=== PATIENT | female | born 1950 | race Caucasian/White ===

== ENCOUNTER 2021-03-20 15:20 | Inpatient (IN) ==
[2021-03-20] MEDS ORDERED: IOPAMIDOL 100 ML BOTTLE IV ONE (15:21)
[2021-03-20] MEDS ORDERED: 0.9 % SODIUM CHLORIDE 1,000 ML IV ONE (15:51)
--- NOTE | 2021-03-20 16:01 | Emergency Department Note ---
Chest Pain HPI General Chief Complaint: Abdominal Pain Stated Complaint: RUQ pain Time Seen by Provider: 03/20/21 15:25 Source: patient Mode of arrival: ambulatory Limitations: no limitations History of Present Illness HPI Narrative: 70-year-old female presents with chief complaint of right sided chest pain behind her right breast. Patient denies any trauma or injury or any straining. The pain is sharp in nature it is worse with a deep breathing movement and coughing. Patient denies any nausea vomiting. Patient does have a history of tongue cancer and she had surgery and radiation and does have some dysphagia and has aspirated in the past. Patient denies any fevers chills shortness of breath or cough. No vomiting no diarrhea. Patient denies history of heart or lung disease. Denies any history of thromboembolism. Patient does have chronic pain and takes hydrocodone for pain. Related Data Home Medications Medication Instructions Recorded Confirmed gabapentin 600 mg PO QAM 10/05/20 02/13/21 Previous Rx's Medication Instructions Recorded magic mouth rinse 1 tsp .ROUTE TID #240 06/21/18 lansoprazole 30 mg capsule,delayed 30 mg PO DAILY #90 cap 06/05/20 release hydrocodone 7.5 mg-acetaminophen 1 tab PO Q6H PRN #30 tab 12/02/20 325 mg tablet zaleplon 10 mg capsule 20 mg PO QHS #240 cap 12/02/20 gabapentin 300 mg capsule 600 mg PO BID 30 Days #120 cap 03/18/21 Allergies Allergy/AdvReac Type Severity Reaction Status Date / Time No Known Drug Allergies Allergy Verified 03/20/21 15:24 Review of Systems ROS ROS Narrative: Narrative: All systems ED: reviewed and negative except as stated. Constitutional: Denies fever, chills and sweats Eyes: Denies vision change Cardiovascular: Reports chest pain (Right-sided, pleuritic) Respiratory: Denies shortness of breath and cough Gastrointestinal: Denies abdominal pain, vomiting and diarrhea Musculoskeletal: Denies back pain and joint pain Integumentary: Denies rash Neurological: Denies headache and dizziness Psychiatric: Denies anxiety, suicidal thoughts and homicidal thoughts Endocrine: Denies polydipsia and polyuria Hematological/Lymphatic: Denies easy bleeding and easy bruising [facility] Narrative Patient History Narrative: Narrative: Medical/Surgical/Family History All Active Problems (Updated 03/20/21 @ 17:14 by Davon Pino MD) Chest pain (Acute) Medicare annual wellness visit, initial (Acute) Nasal polyps (Acute) Paronychia of finger of left hand (Acute) Insomnia (Chronic) Paroxysmal atrial fibrillation (Chronic) TMJ (dislocation of temporomandibular joint) (Chronic) Mouth pain (Chronic) Small bowel obstruction (Chronic) Wellness examination (Chronic) Liver mass (Chronic) Lung nodules (Chronic) Unintentional weight loss (Acute) Difficulty swallowing (Chronic) Stomach cramps (Chronic) Mouth pain (Chronic) Oral candidiasis (Chronic) Osteoporosis (Chronic) Joint pain (Chronic) Hyperlipidemia (Chronic) Tongue cancer (Chronic ~1996) Arthritis (Chronic) Acid reflux (Chronic) Medical History Acid reflux Arthritis Difficulty swallowing History of tobacco use Hyperlipidemia Insomnia Joint pain Medicare annual wellness visit, initial Mouth pain Nasal polyps Osteoporosis Paronychia of finger of left hand Paroxysmal atrial fibrillation Small bowel obstruction Hospitalized [facility] 05/22/18 -she had small bowel resection, adhesion lysis, and rt ovary removed -she had 1 episode of A-fib which resolved before discharge TMJ (dislocation of temporomandibular joint) 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, 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 [place] Unintentional weight loss Wellness examination 04/29/18 Surgical History H/O colonoscopy (01/19/12) Dr Parent H/O oral surgery (~1996) Tongue cancer History of bowel resection (05/12/18) History of exploratory laparotomy (05/12/18) History of right oophorectomy (05/12/18) Family History Mother Dementia Father Hypertension, essential Stroke Social History Smoking Status: Former smoker Alcohol Intake Frequency: a few times a month Substance Use: does not use Exam Narrative Narrative: Constitutional: Awake alert no acute distress thin, elderly HEENT: Normocephalic, atraumatic PERRLA, EOMI, oral mucosa moist, pharynx clear, Neck: Supple, no lymphadenopathy, no JVD Lungs: Breathing unlabored, lungs clear Cardiac: Regular rate and rhythm, normal distal pulses, GI: Soft nontender nondistended no guarding no rebound Musculoskeletal: No tenderness, no deformities, no edema, full range of motion Neuro: Awake alert, cranial nerves II through XII grossly intact, no focal motor or sensory deficits Psychiatric: Normal mood and affect Skin: Warm dry no rash, cap refill less than 2 seconds; no skin lesions noted General Limitations: no limitations Course Vital Signs Vital signs: Vital Signs Temperature 98.1 F 03/20/21 15:21 Pulse Rate 88 03/20/21 15:21 Respiratory Rate 18 03/20/21 15:21 Blood Pressure 132/93 03/20/21 15:21 Pulse Oximetry (%) 93 03/20/21 15:21 Temperature 98.1 F 03/20/21 15:27 Pulse Rate 70 03/20/21 16:39 Respiratory Rate 18 03/20/21 15:27 Blood Pressure 147/90 03/20/21 16:39 Pulse Oximetry (%) 93 03/20/21 16:39 MDM MDM Narrative Medical decision making narrative: 70-year-old female with history of tongue cancer presents with acute onset of right-sided pleuritic chest pain. No prior history of pain this area. Patient has had prior aspiration due to dysphagia related to the tongue cancer which was treated with surgery and radiation labs and imaging are pending. Case discussed with oncoming physician who will follow-up on results and disposition patient. Differential Diagnosis Differential Diagnosis: Pleurisy, pneumonia, cardiac, pulmonary medicine, biliary colic, metastasis Lab Data Result diagrams: 03/20/21 16:00 03/20/21 16:00 Labs: Lab Results 03/20/21 Range/Units 16:00 POC Creatinine 0.8 (0.6-1.2) mg/dL EKG Data EKG #1: EKG attestation: Yes I reviewed and interpreted this EKG. EKG results narrative: EKG performed at 1606 shows sinus rhythm rate of 77 borderline low LVH, Q waves in leads III and aVF, PACs are present no acute ST changes Discharge Plan Patient/Caregiver Discharge Instructions Pt seen by NIGHT ORDER SELECTOR/PA only: No Clinical Impression: Chest pain Patient Disposition: Still a Patient Follow up with: Adrianna Chopra DO [Primary Care Provider] - Prescriptions: No Action magic mouth rinse 1 tsp .Route TID Qty: 240 RF: 2 lansoprazole 30 mg capsule,delayed release(DR/EC) 30 mg PO DAILY Qty: 90 RF: 1 zaleplon 10 mg capsule 20 mg PO QHS Qty: 240 RF: 0 hydrocodone-acetaminophen 7.5-325 mg tablet 1 tab PO Q6H PRN (Reason: Pain) Qty: 30 RF: 0 gabapentin 300 mg capsule 600 mg PO BID 30 Days Qty: 120 RF: 0 gabapentin 300 mg Capsule 600 mg PO QAM RF: 0
[2021-03-20 16:08] LABS: POC Creatinine 0.8 mg/dL (0.6-1.2)
--- NOTE | 2021-03-20 17:26 | EKG ---
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 Measurements Intervals [place] Rate: 77 P: 39 IA: 130 QRS: -22 QRSD: 95 T: 12 QT: 364 QTc: 412 Interpretive Statements Sinus rhythm Atrial premature complex Probable left ventricular hypertrophy Inferior infarct, old NO PRIOR TRACING FOR COMPARISON ABNORMAL TRACING Electronically Signed On 03-20-2021 17:25:56 PDT by Sim Rayn M.D. /store/[email or web address]/[id number]
[2021-03-20 17:40] LABS: ALT/SGPT 8 U/L (<40); AST/SGOT 16 U/L (<32); Albumin 3.9 gm/dL (3.2-5.2); Albumin/Globulin Ratio 1.8 (1.0-2.3); Alkaline Phosphatase 83 U/L (39-117); Bilirubin,Total 0.3 mg/dL (0.1-1.0); Blood Urea Nitrogen 13 mg/dL (8-23); Carbon Dioxide 23 mmol/L (22-30); Chloride 104 mmol/L (96-108); Globulin 2.2 gm/dL (2.2-3.7); Glomerular Filtration Rate 86; Glucose 87 mg/dL (70-105)
--- NOTE | 2021-03-20 17:45 | Cat Scan Report ---
CLINICAL INFORMATION: Right-sided chest pain COMPARISON: Chest CT 12/01/2017 TECHNIQUE: Enteric contrast was utilized. 80 cc of Isovue-370 were injected intravenously, and 50 seconds later 2.5 mm helical slices were obtained from the lung apices through the subtrochanteric regions of the femurs. Following reconstruction, 2.5 mm sagittal, coronal and axial reformatted images were processed and reviewed at multiple windows and levels. 7 mm MIP reconstructions were obtained through the lungs to optimize nodule detection.The exam was performed using radiation dose optimization techniques including, but not limited to, automated exposure control, adjustment of the mA and/or kV according to patient size and use of iterative reconstruction technique. FINDINGS: Pulmonary parenchyma windows show a moderate consolidated infiltrate in the medial segment of the right middle lobe. This likely represents pneumonia. It is new from the previous study. A cluster of three nodules each approximately 6 mm has developed in the medial basilar segment right lower lobe. 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 There is scattered scarring in the lingula peripheral left lower lobe peripheral right lower lobe and also in the periphery of both upper lobes. Underlying chronic bronchitis featuring elevated lung volumes wall thickening/dilatation of bronchi. Mediastinal windows show the heart is normal in size. There is heavy fibrofatty calcific plaque in the proximal LAD - suspect significant stenosis in this coronary artery. It is suboptimally visualized on this noncoronary artery chest CT technique. There is no adenopathy in the mediastinal hilar or axillary region. The pulmonary arteries are normal diameter well-opacified no evidence of embolus. Thoracic aorta is normal diameter. There is no air or hemorrhage in the mediastinum. There is no adenopathy in the mediastinal hilar or axillary region. The esophagus is grossly normal. Abdominal images show two small calcified granulomas less than 6 mm the subdiaphragmatic right hepatic lobe. No significant hepatic abnormality. The gallbladder and bile ducts are normal: CBD is 6 mm. Both kidneys, adrenal glands, spleen, pancreas and abdominal aorta, including abdominal aortic branches, are normal in size, configuration and attenuation without focal lesion. There is no free air, free fluid or adenopathy Pelvic images show urinary bladder is normal. Neither ovary is identified and presumably surgically absent. The stomach, small large bowel show mild symmetric dilatation patible with mild ileus. Bone windows show no osseous abnormality IMPRESSION: 1. Moderate consolidated infiltrate in the medial segment the right middle lobe. This likely accounts for patient's right-sided chest pain. 2. Chronic bronchitis with scattered scarring throughout both lungs. 3. Very heavy focal fibrofatty plaque in the proximal LAD. Suspect significant coronary stenosis in this artery. Suggest referral to cardiology for stress testing 4. The abdomen and pelvis are unremarkable. Interpreted and Authenticated by: Minh Rasheed 03/20/21
[2021-03-20] MEDS ORDERED: morphine 4 MG/ML VIAL IV ONE ×2 (17:53→19:09)
[2021-03-20 17:58] LABS: Appearance,Urine HAZY (Clear); Bilirubin,Urine Negative (Negative); Color,Urine YELLOW; Culture Indicated,Urine No; Glucose,Urine (UA) Negative (Negative); Ketones,Urine Negative (Negative); Leukocyte Esterase,Urine Negative /ug (Negative); Mucus,Urine FEW /hpf; Nitrate,Urine Negative (Negative); Protein,Urine Negative (Negative); Specific Gravity,Urine 1.034 (1.000-1.035); Urine Amorphous Crystals FEW /hpf; Urine Blood Negative (Negative); Urine RBC 3 /hpf (0-3); Urine Squamous Epithelial Cell < 1 /hpf (0-4); Urine WBC 1 /hpf (0-4); Urobilinogen,Urine Negative
[2021-03-20 18:05] LABS: Hematocrit 38.8 % (36.0-48.0); Hemoglobin 12.1 g/dL (12.0-15.0); Mean Cell Volume 86.6 fL (80.0-100.0); Mean Corpuscular HGB Conc 31.2 g/dL (31.0-36.0); Mean Platelet Volume 9.9 fL (7.4-10.4); Platelet Count 248 K/mcL (140-440); RBC 4.48 M/mcL (4.00-5.20); Red Cell Distribution Width 13.4 % (11.5-14.5); WBC 9.9 K/mcL (4.5-11.0)
[2021-03-20] MEDS ORDERED: LEVOFLOXACIN 750 MG/150 ML BAG IV ONE (18:17)
[2021-03-20 18:27] LABS: Lymphocytes % 26 % (15-49); Monocytes % (Manual) 5 % (1-12); Platelet Estimate NORMAL (Normal); RBC Morphology NORMAL (Normal); Segmented Neutrophils % 69 % (38-78)
--- NOTE | 2021-03-20 18:32 | Emergency Department Note ---
HPI General Chief complaint: Abdominal Pain Stated complaint: RUQ pain Time Seen by Provider: 03/20/21 15:25 Source: patient Mode of arrival: ambulatory Limitations: no limitations History of Present Illness HPI Narrative: Narrative: Patient is a 70-year-old female with history of tongue cancer who was signed out to me by Dr. Salazar. I agree with the work-up and plan thus far. It is my understanding the patient came in for right lower chest/right upper abdominal pain. At signout lab work and CT scan were pending. Vital signs stable. I did see and examine the patient myself, and she confirmed the previous physician story. She is feeling much better after pain medication here, and has no other new complaints. Related Data Home Medications Medication Instructions Recorded Confirmed gabapentin 600 mg PO QAM 10/05/20 02/13/21 Previous Rx's Medication Instructions Recorded magic mouth rinse 1 tsp .ROUTE TID #240 06/21/18 lansoprazole 30 mg capsule,delayed 30 mg PO DAILY #90 cap 06/05/20 release hydrocodone 7.5 mg-acetaminophen 1 tab PO Q6H PRN #30 tab 12/02/20 325 mg tablet zaleplon 10 mg capsule 20 mg PO QHS #240 cap 12/02/20 gabapentin 300 mg capsule 600 mg PO BID 30 Days #120 cap 03/18/21 levofloxacin 750 mg PO QDAY 5 Days #150 ml 03/20/21 Allergies Allergy/AdvReac Type Severity Reaction Status Date / Time No Known Drug Allergies Allergy Verified 03/20/21 15:24 Review of Systems ROS ROS Narrative: Narrative: Cardiovascular: Reports chest pain (Right-sided, pleuritic) PFS Narrative Patient History Narrative: Narrative: Medical/Surgical/Family History All Active Problems (Updated 03/20/21 @ 18:28 by Rohit Herzog DO) Pneumonia (Acute) Coronary artery disease (Acute) Medicare annual wellness visit, initial (Acute) Nasal polyps (Acute) Paronychia of finger of left hand (Acute) Insomnia (Chronic) Paroxysmal atrial fibrillation (Chronic) TMJ (dislocation of temporomandibular joint) (Chronic) Mouth pain (Chronic) Small bowel obstruction (Chronic) Wellness examination (Chronic) Liver mass (Chronic) Lung nodules (Chronic) Unintentional weight loss (Acute) Difficulty swallowing (Chronic) Stomach cramps (Chronic) Mouth pain (Chronic) Oral candidiasis (Chronic) Osteoporosis (Chronic) Joint pain (Chronic) Hyperlipidemia (Chronic) Tongue cancer (Chronic ~1996) Arthritis (Chronic) Acid reflux (Chronic) Medical History Acid reflux Arthritis Difficulty swallowing History of tobacco use Hyperlipidemia Insomnia Joint pain Medicare annual wellness visit, initial Mouth pain Nasal polyps Osteoporosis Paronychia of finger of left hand Paroxysmal atrial fibrillation Small bowel obstruction Hospitalized [facility] 05/22/18 -she had small bowel resection, adhesion lysis, and rt ovary removed -she had 1 episode of A-fib which resolved before discharge TMJ (dislocation of temporomandibular joint) 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, 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 [place] Unintentional weight loss Wellness examination 04/29/18 Surgical History H/O colonoscopy (01/19/12) Dr Parent H/O oral surgery (~1996) Tongue cancer History of bowel resection (05/12/18) History of exploratory laparotomy (05/12/18) History of right oophorectomy (05/12/18) Family History Mother Dementia Father Hypertension, essential Stroke Social History Smoking Status: Former smoker Alcohol Intake Frequency: a few times a month Substance Use: does not use Exam Narrative Narrative: Narrative: General Limitations: no limitations Course Vital Signs Vital signs: Vital Signs Temperature 98.1 F 03/20/21 15:21 Pulse Rate 88 03/20/21 15:21 Respiratory Rate 18 03/20/21 15:21 Blood Pressure 132/93 03/20/21 15:21 Pulse Oximetry (%) 93 03/20/21 15:21 Temperature 98.1 F 03/20/21 15:27 Pulse Rate 80 03/20/21 18:16 Respiratory Rate 18 03/20/21 18:16 Blood Pressure 158/103 03/20/21 18:16 Pulse Oximetry (%) 97 03/20/21 18:16 [facility] MDM Narrative Medical decision making narrative: Narrative: I did see and examine the patient myself, and she is sitting up in bed, answering questions normally and appropriately. She does have some difficulty with talking due to her tongue cancer but has no other significant issues. She has no signs of respiratory distress. Blood work overall was unremarkable, however CT scan did reveal likely a pneumonia as the cause of her symptoms. She does have a history of one aspiration event in the past, but has no recent histo ry of an event that she thinks would have caused that. CT scan also did show some coronary artery disease that was recommended to follow-up as an outpatient with cardiology. I did discuss all the results and findings with both the patient and her family member at bedside. We discussed plan of antibiotics and close follow-up with her oncologist as well as cardiology. We also discussed return precautions for the emergency department. They are agreeable to the plan at this time of no further concerns or questions. Patient was given her first dose of antibiotics here in the emergency department prior to discharge. Lab Data Result diagrams: 03/20/21 16:00 03/20/21 16:00 Labs: Lab Results 03/20/21 03/20/21 03/20/21 Range/Units 16:00 16:00 16:00 WBC 9.9 (4.5-11.0) K/mcL RBC 4.48 (4.00-5.20) M/mcL Hgb 12.1 (12.0-15.0) g/dL Hct 38.8 (36.0-48.0) % MCV 86.6 (80.0-100.0) fL MCH 27.0 (26.0-34.0) pg MCHC 31.2 (31.0-36.0) g/dL RDW 13.4 (11.5-14.5) % Plt Count 248 (140-440) K/mcL MPV 9.9 (7.4-10.4) fL Seg Neutrophils % 69 (38-78) % Lymphocytes % 26 (15-49) % Monocytes % (Manual) 5 (1-12) % Platelet Estimate Normal (Normal) RBC Morphology Normal (Normal) Sodium 142 (133-145) mmol/L Potassium 4.0 (3.3-5.1) mmol/L Chloride 104 (96-108) mmol/L Carbon Dioxide 23 (22-30) mmol/L Anion Gap 15.0 (8.0-16.0) BUN 13 (8-23) mg/dL Creatinine 0.7 (0.6-1.1) mg/dL POC Creatinine (0.6-1.2) mg/dL GFR Calculation 86 Glucose 87 (70-105) mg/dL Calcium 9.0 (8.6-10.4) mg/dL Total Bilirubin 0.3 (0.1-1.0) mg/dL AST 16 (<32) U/L ALT 8 (<40) U/L Alkaline Phosphatase 83 (39-117) U/L Troponin T < 0.01 (<0.03) ng/mL Total Protein 6.1 (5.9-8.4) gm/dL Albumin 3.9 (3.2-5.2) gm/dL Globulin 2.2 (2.2-3.7) gm/dL Albumin/Globulin Ratio 1.8 (1.0-2.3) Lipase 15 (7-60) U/L Urine Color Urine Appearance (Clear) Urine pH (5.0-9.0) Ur Specific [place] (1.000-1.035) Urine Protein (Negative) mg/dL Urine Glucose (UA) (Negative) mg/dL Urine Ketones (Negative) mg/dL Urine Occult Blood (Negative) mg/dL Urine Nitrate (Negative) Urine Bilirubin (Negative) mg/dL Urine Urobilinogen mg/dL Ur Leukocyte Esterase (Negative) /ug Urine RBC (0-3) /hpf Urine WBC (0-4) /hpf Ur Squamous Epith Cells (0-4) /hpf Amorphous Crystals (None) /hpf Urine Bacteria (0) /hpf Urine Mucus (None) /hpf Ur Culture Indicated? 03/20/21 03/20/21 Range/Units 16:00 17:00 WBC (4.5-11.0) K/mcL RBC (4.00-5.20) M/mcL Hgb (12.0-15.0) g/dL Hct (36.0-48.0) % MCV (80.0-100.0) fL MCH (26.0-34.0) pg MCHC (31.0-36.0) g/dL RDW (11.5-14.5) % Plt Count (140-440) K/mcL MPV (7.4-10.4) fL Seg Neutrophils % (38-78) % Lymphocytes % (15-49) % Monocytes % (Manual) (1-12) % Platelet Estimate (Normal) RBC Morphology (Normal) Sodium (133-145) mmol/L Potassium (3.3-5.1) mmol/L Chloride (96-108) mmol/L Carbon Dioxide (22-30) mmol/L Anion Gap (8.0-16.0) BUN (8-23) mg/dL Creatinine (0.6-1.1) mg/dL POC Creatinine 0.8 (0.6-1.2) mg/dL GFR Calculation Glucose (70-105) mg/dL Calcium (8.6-10.4) mg/dL Total Bilirubin (0.1-1.0) mg/dL AST (<32) U/L ALT (<40) U/L Alkaline Phosphatase (39-117) U/L Troponin T (<0.03) ng/mL Total Protein (5.9-8.4) gm/dL Albumin (3.2-5.2) gm/dL Globulin (2.2-3.7) gm/dL Albumin/Globulin Ratio (1.0-2.3) Lipase (7-60) U/L Urine Color Yellow Urine Appearance Hazy A (Clear) Urine pH 7.0 (5.0-9.0) Ur Specific [place] 1.034 (1.000-1.035) Urine Protein Negative (Negative) mg/dL Urine Glucose (UA) Negative (Negative) mg/dL Urine Ketones Negative (Negative) mg/dL Urine Occult Blood Negative (Negative) mg/dL Urine Nitrate Negative (Negative) Urine Bilirubin Negative (Negative) mg/dL Urine Urobilinogen Negative mg/dL Ur Leukocyte Esterase Negative (Negative) /ug Urine RBC 3 (0-3) /hpf Urine WBC 1 (0-4) /hpf Ur Squamous Epith Cells < 1 (0-4) /hpf Amorphous Crystals Few A (None) /hpf Urine Bacteria None (0) /hpf Urine Mucus Few A (None) /hpf Ur Culture Indicated? No Discharge Plan Patient/Caregiver Discharge Instructions Pt seen by TAP AND DIE MAKER TECHNICIAN/PA only: No Clinical Impression: Pneumonia, Coronary artery disease Instructions: Coronary Artery Disease (DC), Pneumonia (ED) Patient Disposition: Home, Self-Care Follow up with: Pelon Dasilva [Physician] - Adrianna Chopra DO [Primary Care Provider] - Prescriptions: New levofloxacin 250 mg/10 mL solution 750 mg PO QDAY 5 Days Qty: 150 RF: 0 No Action magic mouth rinse 1 tsp .Route TID Qty: 240 RF: 2 lansoprazole 30 mg capsule,delayed release(DR/EC) 30 mg PO DAILY Qty: 90 RF: 1 zaleplon 10 mg capsule 20 mg PO QHS Qty: 240 RF: 0 hydrocodone-acetaminophen 7.5-325 mg tablet 1 tab PO Q6H PRN (Reason: Pain) Qty: 30 RF: 0 gabapentin 300 mg capsule 600 mg PO BID 30 Days Qty: 120 RF: 0 gabapentin 300 mg Capsule 600 mg PO QAM RF: 0
[2021-03-20] MEDS ORDERED: ONDANSETRON 4 MG/2 ML VIAL IV ONE ×2 (19:09→19:14)
[2021-03-20] MEDS ORDERED: DILTIAZEM 25 MG/5 ML VIAL IV ONE (20:08)
[2021-03-20] MEDS ORDERED: niCARdipine 25 MG in 0.9 % SODIUM CHLORIDE 240 ML IV SCH (20:30)
[2021-03-20] MEDS ORDERED: DILTIAZEM 125 MG in DEXTROSE 5% IN WATER 100 ML IV SCH (21:00)
--- NOTE | 2021-03-20 21:23 | Internal Med History&Physical ---
HPI History of Present Illness Patient information: Note initiated : 03/20/21 at 9:16 pm Service Date, if different from initiated Date: [] Patient: Essence Jurado a 70 y/o F admitted on for RUQ pain. Chief Complaint: [] History of present illness: Ms. Jurado is a 70 year old F Patient presents with right-sided upper abdominal pain under the breast. Work-up in the ED patient found to have right-sided pneumonia. Vital signs were stable and requiring no oxygen. She does feel like she coughs when she eats or drinks. Other than that she denies any cough. Denies any shortness of breath. She does have a history of esophageal dilatation done by Dr. Gaytan and she has a history of tongue cancer. She was getting ready to be discharged when she went into A. fib RVR rates 140. Searching through records did find out that she did have a history of paroxysmal H fibrillation while at [facility] in [place] in 2018. Patient was put on diltiazem drip in the ED. Patient's vital signs remained stable. Review of Systems: Pertinent positives as above. Denies headache/fever/chills/nausea/vomiting/chest or abdominal pain/diarrhea. Remaining 10 point review of system reviewed negative PFSH PFSH All Active Problems (Updated 03/20/21 @ 20:31 by Rohit Herzog DO) Pneumonia (Acute) Coronary artery disease (Acute) A-fib (Acute) Medicare annual wellness visit, initial (Acute) Nasal polyps (Acute) Paronychia of finger of left hand (Acute) Insomnia (Chronic) Paroxysmal atrial fibrillation (Chronic) TMJ (dislocation of temporomandibular joint) (Chronic) Mouth pain (Chronic) Small bowel obstruction (Chronic) Wellness examination (Chronic) Liver mass (Chronic) Lung nodules (Chronic) Unintentional weight loss (Acute) Difficulty swallowing (Chronic) Stomach cramps (Chronic) Mouth pain (Chronic) Oral candidiasis (Chronic) Osteoporosis (Chronic) Joint pain (Chronic) Hyperlipidemia (Chronic) Tongue cancer (Chronic ~1996) Arthritis (Chronic) Acid reflux (Chronic) Medical History Acid reflux Arthritis Difficulty swallowing History of tobacco use Hyperlipidemia Insomnia Joint pain Medicare annual wellness visit, initial Mouth pain Nasal polyps Osteoporosis Paronychia of finger of left hand Paroxysmal atrial fibrillation Small bowel obstruction Hospitalized 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 [place] Unintentional weight loss Wellness examination 04/29/18 Surgical History H/O colonoscopy (01/19/12) Dr, Parent H/O oral surgery (~1996) Tongue cancer History of bowel resection (05/12/18) History of exploratory laparotomy (05/12/18) History of right oophorectomy (05/12/18) Family History Mother Dementia Father Hypertension, essential Stroke Social History marital status: alcohol intake frequency: a few times a month substance use type: does not use MEDS/ALLERGIES Home Medications and Allergies Home Medications Medication Instructions Recorded Confirmed Type magic mouth rinse 1 tsp .ROUTE TID #240 06/21/18 02/13/21 Rx lansoprazole 30 mg capsule,delayed 30 mg PO DAILY #90 cap 06/05/20 02/13/21 Rx release gabapentin 600 mg PO QAM 10/05/20 02/13/21 History hydrocodone 7.5 mg-acetaminophen 1 tab PO Q6H PRN #30 tab 12/02/20 02/13/21 Rx 325 mg tablet zaleplon 10 mg capsule 20 mg PO QHS #240 cap 12/02/20 02/13/21 Rx gabapentin 300 mg capsule 600 mg PO BID 30 Days #120 cap 03/18/21 Rx levofloxacin 750 mg PO QDAY 5 Days #150 ml 03/20/21 Rx Allergies Allergy/AdvReac Type Severity Reaction Status Date / Time No Known Drug Allergies Allergy Verified 03/20/21 15:24 EXAM Constitutional Vitals: Temp Pulse Resp BP Pulse Ox 98.1 F 81 20 119/100 91 03/20/21 15:27 03/20/21 20:16 03/20/21 21:01 03/20/21 21:01 03/20/21 20:16 Exam: General: Alert, Awake, No acute Distress, cachectic Eyes/N/T: EOMI, PERRL, Head/Neck: neck supple, normocephalic atraumatic CV: Tacky and irregular, No murmurs, normal s1/s2 Pulm: Clear b/l, no wheezing/rhonchi/rales Abd: soft, nontender, +BS x4 Ext: no clubbing/cyanosis/edema Neuro: Alert, no focal deficits, moves all extremities, CN 2-12 grossly intact, symmetrical strength b/l upper/lower, sensations intact b/l upper/lower Skin: warm/dry DATA Data Completed and Pending Labs: Labs from last 24 hours 03/20/21 03/20/21 03/20/21 17:00 16:00 16:00 WBC RBC Hgb Hct MCV MCH MCHC RDW Plt Count MPV Seg Neutrophils % Lymphocytes % Monocytes % (Manual) Platelet Estimate RBC Morphology Sodium Potassium Chloride Carbon Dioxide Anion Gap BUN Creatinine POC Creatinine 0.8 GFR Calculation Glucose Calcium Total Bilirubin AST ALT Alkaline Phosphatase Troponin T < 0.01 Total Protein Albumin Globulin Albumin/Globulin Ratio Lipase Urine Color Yellow Urine Appearance Hazy A Urine pH 7.0 Ur Specific [place] 1.034 Urine Protein Negative Urine Glucose (UA) Negative Urine Ketones Negative Urine Occult Blood Negative Urine Nitrate Negative Urine Bilirubin Negative Urine Urobilinogen Negative Ur Leukocyte Esterase Negative Urine RBC 3 Urine WBC 1 Ur Squamous Epith Cells < 1 Amorphous Crystals Few A Urine Bacteria None Urine Mucus Few A Ur Culture Indicated? No 03/20/21 03/20/21 16:00 16:00 WBC 9.9 RBC 4.48 Hgb 12.1 Hct 38.8 MCV 86.6 MCH 27.0 MCHC 31.2 RDW 13.4 Plt Count 248 MPV 9.9 Seg Neutrophils % 69 Lymphocytes % 26 Monocytes % (Manual) 5 Platelet Estimate Normal RBC Morphology Normal Sodium 142 Potassium 4.0 Chloride 104 Carbon Dioxide 23 Anion Gap 15.0 BUN 13 Creatinine 0.7 POC Creatinine GFR Calculation 86 Glucose 87 Calcium 9.0 Total Bilirubin 0.3 AST 16 ALT 8 Alkaline Phosphatase 83 Troponin T Total Protein 6.1 Albumin 3.9 Globulin 2.2 Albumin/Globulin Ratio 1.8 Lipase 15 Urine Color Urine Appearance Urine pH Ur Specific [place] Urine Protein Urine Glucose (UA) Urine Ketones Urine Occult Blood Urine Nitrate Urine Bilirubin Urine Urobilinogen Ur Leukocyte Esterase Urine RBC Urine WBC Ur Squamous Epith Cells Amorphous Crystals Urine Bacteria Urine Mucus Ur Culture Indicated? A/P Narrative A/P Narrative: A: *A. fib RVR (h/o PAF in 2018 in [place]): -CHADSVASC=2 *PNA, Right Side: suspect aspiration *likely dysphagia given history: *h/o tongue CA: *GERD: * P: -dilt gtt wean to BB -echo pending -Anticoagulation -check tsh/mag -f/u with Dr. Vidya Gilliam/Zithromax/Flagyl -ST eval -dysphagia diet - -pt/ot -ppx: lovenox DNR Time Spent With Patient Time: Total time spent is greater than 50% in coordination of care (as documented) at patient's floor/unit and/or counseling patient:
[2021-03-20] MEDS ORDERED: ACETAMINOPHEN 325 MG TABLET PO PRN (22:16)
[2021-03-20] MEDS ORDERED: POLYETHYLENE GLYCOL 3350 17 GM PACKET PO PRN (22:16)
[2021-03-20] MEDS ORDERED: SENNOSIDES 1 TABLET PO PRN (22:16)
[2021-03-20] MEDS ORDERED: MAGNESIUM SULFATE 2 GM/50 ML BAG IV PRN (22:16)
[2021-03-20] MEDS ORDERED: METOPROLOL TARTRATE 5 MG/5 ML VIAL IV PRN (22:16)
[2021-03-20] MEDS ORDERED: 0.9 % SODIUM CHLORIDE 1,000 ML IV SCH (22:16)
[2021-03-20] MEDS ORDERED: POTASSIUM CHLORIDE 40 MEQ in DEXTROSE 5% IN WATER 500 ML IV PRN (22:16)
[2021-03-20] MEDS ORDERED: IPRATROPIUM/ALBUTEROL 3 ML AMPUL.NEB NEB PRN (22:16)
[2021-03-20] MEDS ORDERED: POTASSIUM CHLORIDE 20 MEQ TABLET PO PRN ×2 (22:16)
[2021-03-20] MEDS: 0.9 % SODIUM CHLORIDE 250 ML IV SCH (22:20)
[2021-03-20] MEDS ORDERED: metroNIDAZOLE 500 MG/100 ML BAG IV ONE (22:31)
[2021-03-20] MEDS ORDERED: ENOXAPARIN 40 MG/0.4 ML SYRINGE ONE (22:32)
[2021-03-20] MEDS ORDERED: cefTRIAXone 1 GM VIAL ONE (22:43)
[2021-03-20 23:18] LABS: Thyroid Stimulating Hormone 2.06 uIU/mL (0.27-5.01)
[2021-03-20] MEDS: ENOXAPARIN 40 MG/0.4 ML SYRINGE SQ SCH (23:18)
[2021-03-20] MEDS: AZITHROMYCIN 500 MG in DEXTROSE 5% IN WATER 250 ML IV SCH (23:42)
[2021-03-21] MEDS ORDERED: ACETAMINOPHEN 325 MG TABLET PO ONE (00:02)
[2021-03-21] MEDS: 0.9 % SODIUM CHLORIDE 10 ML SYRINGE IV SCH ×5 (00:18→23:15)
[2021-03-21] MEDS: cefTRIAXone 2 GM in DEXTROSE 5% IN WATER 50 ML IV SCH ×3 (01:00→15:53)
[2021-03-21] MEDS: metroNIDAZOLE 500 MG/100 ML BAG IV SCH ×4 (01:26→23:00)
[2021-03-21] MEDS ORDERED: HYDROcodone/APAP 5/325MG TABLET PO ONE (02:35)
[2021-03-21] MEDS: HYDROcodone/APAP 5/325MG TABLET PO PRN ×4 (02:36→17:52)
[2021-03-21 06:13] LABS: Basophils # (Auto) 0.01 K/mcL (0.00-0.20); Basophils % (Auto) 0.1 % (0.0-2.0); Eosinophils # (Auto) 0 K/mcL (0.00-0.70); Eosinophils % (Auto) 0 % (0.0-7.0); Hematocrit 38.1 % (36.0-48.0); Hemoglobin 11.9 g/dL (12.0-15.0); Lymphocytes # (Auto) 1.14 K/mcL (1.50-4.80); Mean Cell Volume 86.8 fL (80.0-100.0); Mean Corpuscular HGB Conc 31.2 g/dL (31.0-36.0); Monocytes # (Auto) 0.56 K/mcL (0.10-0.90); Monocytes % (Auto) 5.9 % (1.0-12.0); Platelet Count 237 K/mcL (140-440); RBC 4.39 M/mcL (4.00-5.20); Red Cell Distribution Width 13.6 % (11.5-14.5); WBC 9.5 K/mcL (4.5-11.0)
[2021-03-21 06:28] LABS: ALT/SGPT 6 U/L (<40); AST/SGOT 8 U/L (<32); Albumin 3.2 gm/dL (3.2-5.2); Albumin/Globulin Ratio 1.2 (1.0-2.3); Alkaline Phosphatase 75 U/L (39-117); Bilirubin,Direct < 0.2 mg/dL (0-0.3); Bilirubin,Total 0.3 mg/dL (0.1-1.0); Blood Urea Nitrogen 8 mg/dL (8-23); Calcium 8.5 mg/dL (8.6-10.4); Carbon Dioxide 25 mmol/L (22-30); Chloride 104 mmol/L (96-108); Globulin 2.6 gm/dL (2.2-3.7); Glomerular Filtration Rate 96; Glucose 102 mg/dL (70-105); Lactate Dehydrogenase 153 U/L (135-225); Phosphorous 2.4 mg/dL (2.5-4.5); Triglycerides 104 mg/dL (<150); Uric Acid 2.7 mg/dL (2.5-8.0)
--- NOTE | 2021-03-21 07:23 | Internal Med Progress Note ---
SUBJECTIVE Subjective Patient information: Note initiated : 03/21/21 at 7:21 am Service Date, if different from initiated Date: [] Patient: Essence Jurado 70 y/o F admitted on 03/20/21 for RUQ pain. Chief Complaint: [] Interval history: History of present illness: Ms. Jurado is a 70 year old F Patient presents with right-sided upper abdominal pain under the breast. Work-up in the ED patient found to have right-sided pneumonia. Vital signs were stable and requiring no oxygen. She does feel like she coughs when she eats or drinks. Other than that she denies any cough. Denies any shortness of breath. She does have a history of esophageal dilatation done by Dr. Gaytan and she has a history of tongue cancer. She was getting ready to be discharged when she went into A. fib RVR rates 140. Searching through records did find out that she did have a history of paroxysmal H fibrillation while at [facility] in [place] in 2018. Patient was put on diltiazem drip in the ED. Patient's vital signs remained stable. 03/21 Patient did not sleep well states she did not get her home sleep aid. Other than that she denies any new complaints overnight events. No coughing shortness of breath. She converted to normal sinus rhythm beginning of shift. Review of Systems: denies headache/fever/chills/nausea/vomiting/chest or abdominal pain/cough/d yspnea/diarrhea. Otherwise see above. Constitutional Vitals: Vital Signs Temp Pulse Resp BP Pulse Ox 98.4 F 71 22 97/78 94 03/21/21 02:49 03/21/21 04:01 03/21/21 05:31 03/21/21 05:31 03/21/21 05:31 Period Temp Pulse Resp BP Sys/Gordon Pulse Ox Last 24 Hr 98.1 F-98.4 F 31-154 16-30 88-159/60-103 68-98 Intake and Output 03/20/21 03/21/21 03/21/21 21:59 05:59 13:59 Intake Total 1151 839 Output Total 775 Balance 1151 64 Weight 46.72 kg 45.904 kg Intake & Output: Intake & Output 03/20/21 03/21/21 03/21/21 21:59 05:59 13:59 Intake Total 1151 839 Output Total 775 Balance 1151 64 Weight 46.72 kg 45.904 kg Intake: IV 1151 479 Sodium Chloride 0.9% 1,000 ml @ 1000 Wide Open IV [facility] Rx#: [id number] Zithromax 500 mg In Dextrose 5% 250 in Water 250 ml @ 250 mls/hr IV Q24H [facility] Rx#:[id number] Cardizem 125 mg In Dextrose 5% 1 79 in Water 100 ml @ 5 MG/HR 5 mls /hr IV Q12H [facility] Rx#:[id number] Rocephin 2 gm In Dextrose 5% in 50 Water 50 ml @ 100 mls/hr IV Q24H [facility] Rx#:[id number] Oral 360 Output: Void Amount 775 Other: Urine Appearance Clear Urine Color Straw Exam: General: Alert, Awake, No acute Distress, cachectic Eyes/N/T: EOMI, Head/Neck: neck supple, CV: regular, No murmurs, Pulm: Clear b/l, no wheezing/rhonchi/rales Abd: soft, nontender, +BS x4 Ext: no clubbing/cyanosis/edema Neuro: Alert, no focal deficits, moves all extremities, Skin: warm/dry OBJ DATA Labs CBC & Chem 7: 03/21/21 05:14 03/21/21 05:13 Labs: Abnormal Lab Results 03/21/21 03/21/21 03/20/21 05:14 05:13 17:00 Hgb 11.9 L Neut % (Auto) 82.0 H Lymph % (Auto) 12.0 L Lymph # (Auto) 1.14 L Creatinine 0.5 L Calcium 8.5 L Phosphorus 2.4 L Total Protein 5.8 L Urine Appearance Hazy A Amorphous Crystals Few A Urine Mucus Few A Meds: Medications Acetaminophen (Acetaminophen 325 Mg Tablet) 650 mg PO Q6HP PRN PRN Reason: PAIN/FEVER > 101 Last Admin: 03/21/21 00:02 Dose: 650 mg Documented by: Hydrocodone Bitart/Acetaminophen (Hydrocodone/Apap 5/325mg Tablet) 1 tab PO Q4HP PRN PRN Reason: PAIN LEVEL 3-6 Last Admin: 03/21/21 06:40 Dose: 1 tab Documented by: Albuterol/Ipratropium (Ipratropium/Albuterol 3 Ml Ampul.Neb) 3 ml NEB Q4HP PRN PRN Reason: Shortness Of Breath Docusate Sodium (Docusate Sodium 100 Mg Capsule) 100 mg PO BID [facility] Enoxaparin Sodium (Enoxaparin 40 Mg/0.4 Ml Syringe) 40 mg SQ BID [facility] Last Admin: 03/20/21 23:18 Dose: 40 mg Documented by: Gabapentin (Gabapentin 300 Mg Capsule) 600 mg PO BID [facility] Diltiazem HCl 125 mg/ Dextrose 125 mls @ 5 mls/hr IV Q12H [facility]; Protocol Potassium Chloride 40 meq/ (Dextrose) 520 mls @ 130 mls/hr IV UD PRN PRN Reason: Potassium < 3 Magnesium Sulfate (Magnesium Sulfate) 2 gm in 50 mls @ 50 mls/hr IV UD PRN PRN Reason: Magnesium </= 1.6 Sodium Chloride (Sodium Chloride 0.9%) 1,000 mls @ 60 mls/hr IV .[id number] [facility] Stop: 03/21/21 14:55 Last Admin: 03/20/21 23:50 Dose: 60 mls/hr Documented by: Azithromycin 500 mg/ Dextrose 250 mls @ 250 mls/hr IV Q24H [facility]; Protocol Stop: 03/22/21 23:15 Last Infusion: 03/21/21 01:00 Dose: Infused Documented by: Ceftriaxone Sodium 2 gm/ (Dextrose) 50 mls @ 100 mls/hr IV Q24H [facility]; Protocol Last Infusion: 03/21/21 01:40 Dose: Infused Documented by: Metronidazole (Flagyl) 500 mg in 100 mls @ 100 mls/hr IV Q8H [facility]; Protocol Last Infusion: 03/21/21 02:30 Dose: Infused Documented by: Sodium Chloride (Sodium Chloride 0.9%) 250 mls @ 20 mls/hr IV .[id number] [facility] Last Admin: 03/20/21 22:20 Dose: 20 mls/hr Documented by: Metoprolol Tartrate (Metoprolol Tartrate 5 Mg/5 Ml Vial) 5 mg IV Q2HP PRN PRN Reason: Tachyarrhythmias HR>110 Non-Formulary Medication (Zaleplon) 20 mg PO QHS [facility] Ondansetron HCl (Ondansetron 4 Mg/2 Ml Vial) 4 mg IV Q4HP PRN PRN Reason: Nausea And Vomiting Pantoprazole Sodium (Pantoprazole 40 Mg Tablet) 40 mg PO QAMAC [facility] Pneumococcal Polyvalent Vaccine (Pneumococcal 23-Aracelis P-Sac Vac 0.5 Ml Syringe) 0.5 ml IM .ONCE ONE Stop: 03/22/21 10:01 Polyethylene Glycol (Polyethylene Glycol 3350 17 Gm Packet) 17 gm PO DAILYP PRN PRN Reason: Constipation Potassium Chloride (Potassium Chloride 20 Meq Tablet) 40 meq PO UD PRN PRN Reason: Potssium is 3-3.5 Potassium Chloride (Potassium Chloride 20 Meq Tablet) 40 meq PO UD PRN PRN Reason: Potassium < 3 Senna (Sennosides 1 Tablet) 2 tab PO DAILYP PRN PRN Reason: Constipation Sodium Chloride (0.9 % Sodium Chloride 10 Ml Syringe) 10 ml IV Q8 [facility] Last Admin: 03/21/21 06:25 Dose: Not Given Documented by: A/P Narrative A/P Narrative: A: *A. fib RVR (h/o PAF in 2018 in [place]): converted to NSR this morning -CHADSVASC=2 *PNA, Right Side: suspect aspiration *likely dysphagia given history: *h/o tongue CA: *GERD: *h/o Insomnia: P: -dilt gtt wean to BB -echo pending -Anticoagulation -f/u with Dr. Dasilva (cardiology) -Rocephin/Zithromax/Flagyl -ST eval -dysphagia diet -home sleep aid -pt/ot -ppx: lovenox DNR Time Spent With Patient Time: Total time spent is greater than 50% in coordination of care (as documented) at patient's floor/unit and/or counseling patient: QUALITY VTE Deep Vein Thrombosis/Pulmonary Embolism Present on Admission: No
[2021-03-21] MEDS: DILTIAZEM 125 MG in DEXTROSE 5% IN WATER 100 ML IV SCH ×2 (08:40→21:20)
[2021-03-21] MEDS: METOPROLOL TARTRATE 25 MG TABLET PO SCH ×2 (08:41→21:09)
[2021-03-21] MEDS: GABAPENTIN 300 MG CAPSULE PO SCH ×2 (08:41→21:09)
[2021-03-21] MEDS: ENOXAPARIN 40 MG/0.4 ML SYRINGE SQ SCH ×2 (08:42→21:09)
[2021-03-21] MEDS: DOCUSATE SODIUM 100 MG CAPSULE PO SCH ×2 (08:42→21:20)
[2021-03-21] MEDS: PANTOPRAZOLE 40 MG TABLET PO SCH (08:42)
[2021-03-21] MEDS ORDERED: traMADol 50 MG TABLET PO PRN (10:36)
[2021-03-21] MEDS: 0.9 % SODIUM CHLORIDE 250 ML IV SCH (10:49)
[2021-03-21] MEDS: ONDANSETRON 4 MG/2 ML VIAL IV PRN (13:05)
--- NOTE | 2021-03-21 14:53 | EKG ---
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 Measurements Intervals [place] Rate: 67 P: 10 CO: 144 QRS: -21 QRSD: 88 T: -6 QT: 412 QTc: 435 Interpretive Statements SINUS RHYTHM CONSIDER LEFT VENTRICULAR HYPERTROPHY NONSPECIFIC T ABNORMALITIES, INFERIOR LEADS Since previous ECG of 03-20-2021, QUESTION CRITERIA FOR IMI Electronically Signed On 03-21-2021 14:53:05 PDT by Sim Ryan M.D. /[facility]/M0/[id number].pdf
[2021-03-21] MEDS: AZITHROMYCIN 500 MG in DEXTROSE 5% IN WATER 250 ML IV SCH (21:10)
[2021-03-21] MEDS: MAGIC MOUTH WASH PO PRN (21:14)
[2021-03-21] MEDS: MYLANTA PO PRN (21:14)
[2021-03-21] MEDS: BENADRYL PO PRN (21:14)
[2021-03-21] MEDS: MELATONIN 3 MG TABLET PO SCH (21:18)
[2021-03-22] MEDS: 0.9 % SODIUM CHLORIDE 250 ML IV SCH ×2 (02:23→08:37)
[2021-03-22] MEDS: HYDROcodone/APAP 5/325MG TABLET PO PRN ×3 (03:47→19:33)
[2021-03-22] MEDS: 0.9 % SODIUM CHLORIDE 10 ML SYRINGE IV SCH ×3 (06:30→21:14)
[2021-03-22] MEDS: metroNIDAZOLE 500 MG/100 ML BAG IV SCH ×4 (06:30→22:41)
--- NOTE | 2021-03-22 07:20 | Internal Med Progress Note ---
SUBJECTIVE Subjective Patient information: Note initiated : 03/22/21 at 7:15 am Service Date, if different from initiated Date: [] Patient: Essence Jurado 70 y/o F admitted on 03/20/21 for RUQ pain. Chief Complaint: [] Interval history: History of present illness: Ms. Jurado is a 70 year old F Patient presents with right-sided upper abdominal pain under the breast. Work-up in the ED patient found to have right-sided pneumonia. Vital signs were stable and requiring no oxygen. She does feel like she coughs when she eats or drinks. Other than that she denies any cough. Denies any shortness of breath. She does have a history of esophageal dilatation done by Dr. Gaytan and she has a history of tongue cancer. She was getting ready to be discharged when she went into A. fib RVR rates 140. Searching through records did find out that she did have a history of paroxysmal H fibrillation while at [facility] in [place] in 2018. Patient was put on diltiazem drip in the ED. Patient's vital signs remained stable. 03/21 Patient did not sleep well states she did not get her home sleep aid. Other than that she denies any new complaints overnight events. No coughing shortness of breath. She converted to normal sinus rhythm beginning of shift. 03/22 Patient converted normal sinus rhythm yesterday but just short time ago she went back into A. fib with RVR. Has some nausea but no chest pain or shortness of breath. Speech therapy saw her and found she has severe oropharyngeal and esophageal dysphagia and recommended pured diet. Speech therapy did discuss potential feeding tube but the patient refused. Review of Systems: denies headache/fever/chills/vomiting/chest or abdominal pain/cough/dyspnea/diarrhea. Otherwise see above. Constitutional Vitals: Vital Signs Temp Pulse Resp BP Pulse Ox 99.0 F 64 18 120/89 92 03/22/21 04:51 03/22/21 06:01 03/22/21 06:01 03/22/21 06:01 03/22/21 06:01 Period Temp Pulse Resp BP Sys/Gordon Pulse Ox Last 24 Hr 98.0 F-99.8 F 64-90 13-24 113-153/75-108 89-99 Intake and Output 03/21/21 03/22/2121 21:59 05:59 13:59 Intake Total 1210 450 Output Total 450 800 225 Balance 760 -350 -225 Weight 45.904 kg 49.351 kg Intake & Output: Intake & Output 03/21/21 03/22/21 03/22/21 21:59 05:59 13:59 Intake Total 1210 450 Output Total 450 800 225 Balance 760 -350 -225 Weight 45.904 kg 49.351 kg Intake: Nourishment/Supplement quantity 60 (ml) IV 1150 350 Sodium Chloride 0.9% 1,000 ml @ 1000 60 mls/hr IV .[id number] [facility] Rx#: [id number] Zithromax 500 mg In Dextrose 5% 250 in Water 250 ml @ 250 mls/hr IV Q24H [facility] Rx#:[id number] Rocephin 2 gm In Dextrose 5% in 50 Water 50 ml @ 100 mls/hr IV Q24H [facility] Rx#:[id number] Oral 100 Output: Void Amount 450 800 225 Other: Meal Nourishment/Supplement Percent of Meal Consumed Bites Feeding Ability Independent Nourishment/Supplement name Beneprotein Urine Appearance Clear Clear Clear Urine Color Bright Yellow Bright Yellow Bright Yellow Urine Odor Normal # Voids 1 Exam: General: Alert, Awake, No acute Distress, cachectic Eyes/N/T: EOMI, Head/Neck: neck supple, CV: regular, No murmurs, Pulm: Clear b/l, no wheezing/rhonchi/rales Abd: soft, nontender, +BS x4 Ext: no clubbing/cyanosis/edema Neuro: Alert, no focal deficits, moves all extremities, Skin: warm/dry OBJ DATA Labs CBC & Chem 7: 03/21/21 05:14 03/21/21 05:13 Labs: Abnormal Lab Results 03/21/21 03/21/21 03/20/21 05:14 05:13 17:00 Hgb 11.9 L Neut % (Auto) 82.0 H Lymph % (Auto) 12.0 L Lymph # (Auto) 1.14 L Creatinine 0.5 L Calcium 8.5 L Phosphorus 2.4 L Total Protein 5.8 L Urine Appearance Hazy A Amorphous Crystals Few A Urine Mucus Few A Meds: Medications Acetaminophen (Acetaminophen 325 Mg Tablet) 650 mg PO Q6HP PRN PRN Reason: PAIN/FEVER > 101 Last Admin: 03/21/21 00:02 Dose: 650 mg Documented by: Hydrocodone Bitart/Acetaminophen (Hydrocodone/Apap 5/325mg Tablet) 1 tab PO Q4HP PRN PRN Reason: PAIN LEVEL 3-6 Last Admin: 03/22/21 03:47 Dose: 1 tab Documented by: Albuterol/Ipratropium (Ipratropium/Albuterol 3 Ml Ampul.Neb) 3 ml NEB Q4HP PRN PRN Reason: Shortness Of Breath Docusate Sodium (Docusate Sodium 100 Mg Capsule) 100 mg PO BID [facility] Last Admin: 03/21/21 21:20 Dose: Not Given Documented by: Enoxaparin Sodium (Enoxaparin 40 Mg/0.4 Ml Syringe) 40 mg SQ BID [facility] Last Admin: 03/21/21 21:09 Dose: 40 mg Documented by: Gabapentin (Gabapentin 300 Mg Capsule) 600 mg PO BID [facility] Last Admin: 03/21/21 21:09 Dose: 600 mg Documented by: Diltiazem HCl 125 mg/ Dextrose 125 mls @ 5 mls/hr IV Q12H [facility]; Protocol Last Admin: 03/21/21 21:20 Dose: Not Given Documented by: Potassium Chloride 40 meq/ (Dextrose) 520 mls @ 130 mls/hr IV UD PRN PRN Reason: Potassium < 3 Magnesium Sulfate (Magnesium Sulfate) 2 gm in 50 mls @ 50 mls/hr IV UD PRN PRN Reason: Magnesium </= 1.6 Azithromycin 500 mg/ Dextrose 250 mls @ 250 mls/hr IV Q24H [facility]; Protocol Stop: 03/22/21 23:15 Last Infusion: 03/21/21 22:45 Dose: Infused Documented by: Ceftriaxone Sodium 2 gm/ (Dextrose) 50 mls @ 100 mls/hr IV Q24H [facility]; Protocol Last Infusion: 03/21/21 16:30 Dose: Infused Documented by: Metronidazole (Flagyl) 500 mg in 100 mls @ 100 mls/hr IV Q8H [facility]; Protocol Last Admin: 03/22/21 06:30 Dose: 100 mls/hr Documented by: Sodium Chloride (Sodium Chloride 0.9%) 250 mls @ 20 mls/hr IV .[id number] [facility] Last Admin: 03/22/21 02:23 Dose: Not Given Documented by: Melatonin (Melatonin 3 Mg Tablet) 3 mg PO QHS [facility] Last Admin: 03/21/21 21:18 Dose: 3 mg Documented by: Metoprolol Tartrate (Metoprolol Tartrate 5 Mg/5 Ml Vial) 5 mg IV Q2HP PRN PRN Reason: Tachyarrhythmias HR>110 Metoprolol Tartrate (Metoprolol Tartrate 25 Mg Tablet) 12.5 mg PO BID [facility] Last Admin: 03/21/21 21:09 Dose: 12.5 mg Documented by: Ondansetron HCl (Ondansetron 4 Mg/2 Ml Vial) 4 mg IV Q4HP PRN PRN Reason: Nausea And Vomiting Last Admin: 03/21/21 13:05 Dose: 4 mg Documented by: Pantoprazole Sodium ([facility]op[facility]ole 40 Mg Tablet) [facility] Last Admin: 03/21/21 08:42 Dose: 40 mg Documented by: Zaleplon 10 Mg (Capsule) 1 dose PO [facility] Last Admin: 03/21/21 21:38 Dose: Not Given Documented by: Magic Mouth Wash ( Lidocaine, Benadryl, Mylanta) 1 dose PO Q4HP PRN PRN Reason: Mouth Pain Last Admin: 03/21/21 21:14 Dose: 1 dose Documented by: Pneumococcal Polyvalent Vaccine (Pneumococcal 23-Aracelis P-Sac Vac 0.5 Ml Syringe) 0.5 ml IM .ONCE ONE Stop: 03/22/21 10:01 Polyethylene Glycol (Polyethylene Glycol 3350 17 Gm Packet) 17 gm PO DAILYP PRN PRN Reason: Constipation Potassium Chloride (Potassium Chloride 20 Meq Tablet) 40 meq PO UD PRN PRN Reason: Potssium is 3-3.5 Potassium Chloride (Potassium Chloride 20 Meq Tablet) 40 meq PO UD PRN PRN Reason: Potassium < 3 Senna (Sennosides 1 Tablet) 2 tab PO DAILYP PRN PRN Reason: Constipation Last Admin: 03/21/21 21:09 Dose: 2 tab Documented by: Sodium Chloride (0.9 % Sodium Chloride 10 Ml Syringe) 10 ml IV Q8 [facility] Last Admin: 03/22/21 06:30 Dose: 10 ml Documented by: Tramadol HCl (Tramadol 50 Mg Tablet) 50 mg PO Q6HP PRN; Protocol PRN Reason: Pain Last Admin: 03/21/21 10:42 Dose: 50 mg Documented by: A/P Narrative A/P Narrative: A: *PAF w/RVR (h/o PAF in 2018 in [place]): converted to NSR yesterday but back to A fib today -CHADSVASC=2 -echo *PNA, Right Side, Aspiration: *Oropharyngeal/Esophageal Dysphagia, severe: *h/o tongue CA: *GERD: *h/o Insomnia: P: -cont lopressor but increase to 25 bid -echo pending -Anticoagulation -f/u with Dr. Dasilva (cardiology) -Rocephin/Zithromax/Flagyl to augmentin in AM -dysphagia diet per ST. speech therapy did discuss potential feeding tube but the patient refused that consideration. -pt/ot -ppx: eliquis DNR Time Spent With Patient Time: Total time spent is greater than 50% in coordination of care (as documented) at patient's floor/unit and/or counseling patient: QUALITY VTE Deep Vein Thrombosis/Pulmonary Embolism Present on Admission: No
[2021-03-22] MEDS: METOPROLOL TARTRATE 5 MG/5 ML VIAL IV PRN ×2 (07:55→08:07)
[2021-03-22] MEDS: DILTIAZEM 125 MG in DEXTROSE 5% IN WATER 100 ML IV SCH ×2 (08:36→21:16)
[2021-03-22] MEDS: ONDANSETRON 4 MG/2 ML VIAL IV PRN (08:43)
[2021-03-22] MEDS ORDERED: AMIODARONE 150 MG in DEXTROSE 5% IN WATER 50 ML IV ONE (08:50)
--- NOTE | 2021-03-22 09:20 | Discharge Summary ---
Discharge Provider Provider Patient information: Note initiated : 03/22/21 at 9:18 am Service Date, if different from initiated Date: [] Patient: Essence Jurado 70 y/o F admitted on 03/20/21 for RUQ pain. Chief Complaint: [] Date of admission: 03/20/21 22:03 Discharge date: 03/23/21 Primary care physician: Adrianna Chopra DO Consults: 03/20/21 Consult to Physician [CONS] Stat Comment: Consulting Provider: Sajan Bo Reason For Exam: Physician to Consult Discharge Meds Discharge Medications Home Medications lansoprazole 30 mg capsule,delayed release 30 mg PO DAILY #90 cap 06/05/20 [Rx Confirmed 03/21/21 Last Taken Unknown] zaleplon 10 mg capsule 20 mg PO QHS #240 cap 12/02/20 [Rx Confirmed 03/21/21 Last Taken Unknown] gabapentin 300 mg capsule 600 mg PO BID 30 Days #120 cap 03/18/21 [Rx Confirmed 03/21/21 Last Taken Unknown] fluticasone propionate 2 spray INTRANASAL BID 03/21/21 [History Confirmed 03/21/21 Last Taken Unknown] hydrocodone-acetaminophen 1 - 2 tab PO Q4-6HP PRN 03/21/21 [History Confirmed 03/21/21 Last Taken Unknown] magic mouth rinse 10 ml PO Q4HP PRN 03/21/21 [History Confirmed 03/21/21 Last Taken Unknown] tramadol 50 mg PO Q6HP PRN 03/21/21 [History Confirmed 03/21/21 Last Taken Unknown] apixaban [Eliquis] 5 mg PO BID #60 tab 03/22/21 [Rx Last Taken Unknown] metoprolol tartrate 25 mg PO BID #60 tab 03/22/21 [Rx Last Taken Unknown] amoxicillin-pot clavulanate [Augmentin] 1 tab PO BID #6 tab 03/23/21 [Rx Last Taken Unknown] COURSE Hospital Course Hospital course: Interval history: History of present illness: Ms. Jurado is a 70 year old F Patient presents with right-sided upper abdominal pain under the breast. Work-up in the ED patient found to have right-sided pneumonia. Vital signs were stable and requiring no oxygen. She does feel like she coughs when she eats or drinks. Other than that she denies any cough. Denies any shortness of breath. She does have a history of esophageal dilatation done by Dr. Gaytan and she has a history of tongue cancer. She was getting ready to be discharged when she went into A. fib RVR rates 140. Searching through records did find out that she did have a history of paroxysmal H fibrillation while at [facility] in [place] in 2017. Patient was put on diltiazem drip in the ED. Patient's vital signs remained stable. 03/21 Patient did not sleep well states she did not get her home sleep aid. Other than that she denies any new complaints overnight events. No coughing shortness of breath. She converted to normal sinus rhythm beginning of shift. 03/22 Patient converted normal sinus rhythm yesterday but just short time ago she went back into A. fib with RVR. Has some nausea but no chest pain or shortness of breath. Speech therapy saw her and found she has severe oropharyngeal and esophageal dysphagia and recommended pured diet. Speech therapy did discuss potential feeding tube but the patient refused. 03/23 Heart rate well controlled. On room air. Patient wanting to go home. A: *PAF w/RVR (h/o PAF in 2018 in [place]): converted to NSR yesterday but back to Afib today -CHADSVASC=2 -echo *PNA, Right Side, Aspiration: *Oropharyngeal/Esophageal Dysphagia, severe: *h/o tongue CA: *GERD: *h/o Insomnia: Discharge diagnosis: A. fib RVR aspiration pneumonia dysphagia Secondary discharge diagnosis: History of tongue cancer GERD insomnia Time Spent with Patient Time attestation: Total time spent providing and/or coordinating discharge services: Time spent: Greater than 30 minutes EXAM Constitutional Vitals: Temp Pulse Resp BP Pulse Ox 99.0 F 64 18 120/89 92 03/22/21 04:51 03/22/21 06:01 03/22/21 06:01 03/22/21 06:01 03/22/21 06:01 Discharge Data Data Completed and Pending Labs on day of discharge: Labs from last 24 hours 03/22/21 03/21/21 09:13 21:05 Sodium Pending Potassium Pending Chloride Pending Carbon Dioxide Pending Anion Gap Pending BUN Pending Creatinine Pending GFR Calculation Pending Glucose Pending Uric Acid Pending Calcium Pending Phosphorus Pending Magnesium Pending Total Bilirubin Pending Direct Bilirubin Pending GGT Pending AST Pending ALT Pending Alkaline Phosphatase Pending Lactate Dehydrogenase Pending Total Protein Pending Albumin Pending Globulin Pending Albumin/Globulin Ratio Pending Triglycerides Pending Ur Strep pneumoniae Ag Negative Discharge Plan Patient/Caregiver Discharge Instructions Activity: increase activity as tolerated Diet: Dysphagia Level 4 Pureed Foods Instructions: Pneumonia (ED) Activity Restrictions/Additional Instructions: Follow-up with speech therapy outpatient. Referral to see cardiology (Dr. Dasilva @ [facility]) in 3 to 14 days for atrial fibrillation Prescriptions: New metoprolol tartrate 25 mg Tablet 25 mg PO BID Qty: 60 RF: 0 Eliquis 5 mg Tablet 5 mg PO BID Qty: 60 RF: 0 amoxicillin-pot clavulanate [Augmentin] 875-125 mg tablet 1 tab PO BID Qty: 6 RF: 0 Continued lansoprazole 30 mg capsule,delayed release(DR/EC) 30 mg PO DAILY Qty: 90 RF: 1 zaleplon 10 mg capsule 20 mg PO QHS Qty: 240 RF: 0 gabapentin 300 mg capsule 600 mg PO BID 30 Days Qty: 120 RF: 0 hydrocodone-acetaminophen 7.5-325 mg tablet 1 - 2 tab PO Q4-6HP PRN (Reason: mouth pain) RF: 0 fluticasone propionate 50 mcg/actuation spray,suspension 2 spray INTRANASAL BID RF: 0 magic mouth rinse 10 ml PO Q4HP PRN (Reason: Mouth Pain) RF: 0 tramadol 50 mg tablet 50 mg PO Q6HP PRN (Reason: Severe Pain (Scale Score 7-10)) RF: 0 Follow Up Plan Follow up with: Pelon Dasilva [Physician] - Adrianna Chopra DO [Primary Care Provider] - Patient Disposition: Home, Self-Care Prognosis: Fair Overall status at discharge: patient is progressing back to baseline Discharge Orders: Discharge Order (Routine); Ordered 03/23/21 Ordered By: Sajan LEES VTE Deep Vein Thrombosis/Pulmonary Embolism Present on Admission: No
[2021-03-22] MEDS: cefTRIAXone 2 GM in DEXTROSE 5% IN WATER 50 ML IV SCH (09:36)
[2021-03-22] MEDS: METOPROLOL TARTRATE 25 MG TABLET PO SCH ×2 (09:37→21:14)
[2021-03-22] MEDS: APIXABAN 5 MG TABLET PO SCH ×2 (09:37→21:14)
[2021-03-22] MEDS: PANTOPRAZOLE 40 MG TABLET PO SCH (09:37)
[2021-03-22] MEDS: GABAPENTIN 300 MG CAPSULE PO SCH ×2 (09:37→21:14)
[2021-03-22] MEDS: DOCUSATE SODIUM 50 MG/5 ML ORAL.SOL PO SCH ×2 (09:38→21:14)
[2021-03-22] MEDS ORDERED: PNEUMOCOCCAL 23-VAL P-SAC VAC 0.5 ML SYRINGE IM ONE (10:00)
[2021-03-22 10:06] LABS: ALT/SGPT < 5 U/L (<40); AST/SGOT 5 U/L (<32); Albumin 3.2 gm/dL (3.2-5.2); Albumin/Globulin Ratio 1.1 (1.0-2.3); Alkaline Phosphatase 71 U/L (39-117); Bilirubin,Direct < 0.2 mg/dL (0-0.3); Bilirubin,Total 0.2 mg/dL (0.1-1.0); Blood Urea Nitrogen 9 mg/dL (8-23); Calcium 8.8 mg/dL (8.6-10.4); Carbon Dioxide 24 mmol/L (22-30); Chloride 102 mmol/L (96-108); Globulin 2.9 gm/dL (2.2-3.7); Glomerular Filtration Rate 96; Glucose 93 mg/dL (70-105); Lactate Dehydrogenase 127 U/L (135-225); Phosphorous 2.1 mg/dL (2.5-4.5); Triglycerides 139 mg/dL (<150); Uric Acid 3.6 mg/dL (2.5-8.0)
[2021-03-22] MEDS ORDERED: MAGNESIUM SULFATE 8.12 MEQ in DEXTROSE 5% IN WATER 50 ML IV ONE (10:24)
[2021-03-22] MEDS ORDERED: POTASSIUM PHOSPHATE 20 MEQ in DEXTROSE 5% IN WATER 250 ML IV ONE (10:24)
[2021-03-22] MEDS: BENADRYL PO PRN ×2 (11:47→19:33)
[2021-03-22] MEDS: MAGIC MOUTH WASH PO PRN ×2 (11:47→19:33)
[2021-03-22] MEDS: MYLANTA PO PRN ×2 (11:47→19:33)
--- NOTE | 2021-03-22 12:00 | EKG ---
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 Measurements Intervals [place] Rate: 137 P: PA: QRS: -20 QRSD: 80 T: 20 QT: 320 QTc: 484 Interpretive Statements ATRIAL FIBRILLATION/RVR LVH WITH SECONDARY REPOLARIZATION ABNORMALITY CONSIDER ANTERIOR INFARCT Since previous ECG of 03-21-2021, 911, ATRIAL FIBRILLATION ABNORMAL ECG Electronically Signed On 03-22-2021 11:59:31 PDT by Sim Ryan M.D. /[facility] [place]/M0/[id number]
[2021-03-22] MEDS: MELATONIN 3 MG TABLET PO SCH (21:14)
[2021-03-22] MEDS: AZITHROMYCIN 500 MG in DEXTROSE 5% IN WATER 250 ML IV SCH (21:15)
[2021-03-23] MEDS: 0.9 % SODIUM CHLORIDE 250 ML IV SCH (00:30)
[2021-03-23] MEDS: HYDROcodone/APAP 5/325MG TABLET PO PRN ×2 (02:33→07:00)
[2021-03-23] MEDS: 0.9 % SODIUM CHLORIDE 10 ML SYRINGE IV SCH (06:03)
[2021-03-23] MEDS: metroNIDAZOLE 500 MG/100 ML BAG IV SCH (06:03)
[2021-03-23] MEDS: PANTOPRAZOLE 40 MG TABLET PO SCH (07:00)
[2021-03-23] MEDS: DILTIAZEM 125 MG in DEXTROSE 5% IN WATER 100 ML IV SCH (08:03)
[2021-03-23] MEDS: APIXABAN 5 MG TABLET PO SCH (08:12)
[2021-03-23] MEDS: METOPROLOL TARTRATE 25 MG TABLET PO SCH (08:12)
[2021-03-23] MEDS: BENADRYL PO PRN (08:12)
[2021-03-23] MEDS: DOCUSATE SODIUM 50 MG/5 ML ORAL.SOL PO SCH (08:12)
[2021-03-23] MEDS: MAGIC MOUTH WASH PO PRN (08:12)
[2021-03-23] MEDS: cefTRIAXone 2 GM in DEXTROSE 5% IN WATER 50 ML IV SCH (08:12)
[2021-03-23] MEDS: GABAPENTIN 300 MG CAPSULE PO SCH (08:12)
[2021-03-23] MEDS: MYLANTA PO PRN (08:12)
[2021-03-23] MEDS ORDERED: PNEUMOCOCCAL 23-VAL P-SAC VAC 0.5 ML SYRINGE IM ONE (10:00)
--- NOTE | 2021-03-23 15:14 | EKG ---
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 Measurements Intervals [place] Rate: 68 P: 48 NV: 144 QRS: -16 QRSD: 80 T: 13 QT: 412 QTc: 439 Interpretive Statements SINUS RHYTHM Since previous ECG of 03-22-2021, 0840, SINUS RHYTHM, GOOD R-WAVE TRANSITION V3 NORMAL TRACING Electronically Signed On 03-23-2021 15:14:22 PDT by Sim Ryan M.D. /store/M0/[id number]
[2021-03-23] MEDS ORDERED: AMOXICILLIN/POTASSIUM CLAV 875 MG TABLET PO SCH (17:30)
--- NOTE | 2021-03-25 12:17 | EKG ---
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 Measurements Intervals [place] Rate: 168 P: [place]: QRS: -20 QRSD: 82 T: 179 QT: 265 QTc: 444 Interpretive Statements Atrial fibrillation with rapid V-rate Probable LVH with secondary repol abnrm Inferior infarct, old Since previous ECG of 03-20-2021, 1606, ATRIAL FIBRILLATION/RVR, ABNORMAL ECG Electronically Signed On 03-25-2021 12:17:10 PDT by Sim Ryan M.D. /[facility] [place]/M0/[id number]
== END 2021-03-23 09:50 | disposition home or self-care (01) | DRG 308 ==
LOC: ED 15:20 → ICU 22:03
PROVIDERS: ADMIT Internal Medicine; ATTEND Internal Medicine